=== PATIENT | female | born 1995 | race Caucasian/White ===

== ENCOUNTER 2018-11-30 15:56 | Inpatient (IN) ==
--- NOTE | 2018-11-30 17:03 | Emergency Department Note ---
Disposition Clinical Impression: Suicidal ideation Depression Qualifiers: Depression Type: unspecified Qualified Code(s): F32.9 - Major depressive disorder, single episode, unspecified Disposition: Admitted As Inpatient Condition: Good Referrals: NONE,PCP [Primary Care Provider] - Forms: ED Satisfaction Letter Time of Disposition: 20:25 Psych HPI - General Chief Complaint: ED Psychiatric Symptoms Stated Complaint: anxiety/depression Time Seen by Provider: 11/30/18 16:42 Source: patient, family Mode of arrival: ambulatory Limitations: no limitations Nursing Notes Reviewed: Yes Vital Signs Reviewed: Yes - History of Present Illness HPI Narrative: 23 year old female with history of cutting and depression and currrenlty on well-butrin being managed by Dr. Mcguire presnancy to the ED with a family member. She states that her depression symptoms have otherwise worsened and that in the past two days she has had increased through of hutring herself even thouguh she does not think she would act upon it. Trinity states tht her uncle and two more of her family memebers are otherwise not doing well. She state that about 3 weeks ago she started cutting again on her LLE. Patient is tearful at bedsie and has inappropite laughter at times because of anxiety. - Related Data Allergies Allergy/AdvReac Type Severity Reaction Status Date / Time azithromycin AdvReac Rash Verified 11/30/18 15:57 Constitutional: Denies: fever, chills, weakness, weight change Eyes: Denies: eye pain, eye discharge, vision change ENT ED: Denies: ear pain, throat pain, dental pain, hearing loss, epistaxis, congestion, dysphagia Cardiovascular: Denies: chest pain, palpitations, dyspnea on exertion, edema, syncope Respiratory: Denies: cough, dyspnea, wheezes, hemoptysis, stridor Gastrointestinal: Denies: abdominal pain, nausea, vomiting, diarrhea, constipation, hematemesis, melena, hematochezia Genitourinary: Denies: dysuria, frequency, hematuria, discharge Musculoskeletal: Denies: back pain, neck pain, arthralgia, myalgia Integumentary: Denies: rash, abrasion, lesions Neurological: Denies: headache, weakness, numbness, paresthesias, confusion, abnormal gait, vertigo Psychiatric: Reports: anxiety, depression, suicidal thoughts. Denies: homicidal thoughts, auditory hallucinations, visual hallucinations Endocrine: Denies: fatigue Hematological/Lymphatic: Denies: easy bleeding, easy bruising Allergic/Immunologic: Denies: facial swelling, urticaria Past Medical History - Past Medical History Medical history: Reports: no medical history Psychiatric history: Reports: depression - Social History Smoking Status: Never smoker Smokeless Tobacco Status: No Alcohol use: Reports: none Drug use: Reports: none Physical Exam - General Limitations: no limitations General appearance: alert, in no apparent distress - Head Head exam: atraumatic, normocephalic, normal inspection - Eye Eye exam: Present: normal appearance, PERRL, EOMI - Expanded Eye Exam Pupils: Bilateral: reactive - ENT ENT exam: normal exam, normal oropharynx, mucous membranes moist - Expanded ENT Exam External ear exam: Present: normal external inspection Mouth exam: Present: normal external inspection Teeth exam: Present: normal inspection Throat exam: Present: normal inspection - Neck Neck exam: Present: normal inspection, full ROM, trachea midline - Chest Chest inspection: Present: normal inspection, symmetric chest wall rise - Respiratory Respiratory exam: Present: normal lung sounds bilaterally - Cardiovascular Cardiovascular exam: Present: regular rate, normal rhythm, normal heart sounds - Abdominal Exam Abdominal exam: Present: soft, Non-Tender. Absent: tenderness, distention, guarding, rebound, rigidity - Extremities Exam Extremities exam: Present: normal inspection, full ROM. Absent: tenderness, pedal edema - Expanded Upper Extremity Exam Shoulder exam: Present: normal inspection, full ROM Arm exam: Present: normal inspection, full ROM Elbow exam: Present: normal inspection, full ROM Forearm/Wrist exam: Present: normal inspection, full ROM Hand exam: Present: normal inspection, full ROM Vascular exam: Normal: capillary refill, radial pulse - Expanded Lower Extremity Exam Hip/Pelvis exam: Present: normal inspection, full ROM Upper leg exam: Present: normal inspection, full ROM Knee exam: Present: normal inspection, full ROM Lower leg exam: Present: normal inspection, full ROM, laceration (healing lacerations on her LLE along the medial side of her left leg) Ankle exam: Present: normal inspection, full ROM Foot/toe exam: Present: normal inspection, full ROM Neurovascular/Tendon exam: Absent: motor deficit, sensory deficit, tendon deficit - Back Exam Back exam: Present: normal inspection, full ROM. Absent: tenderness - Neurological Exam Neurological exam: Present: alert, oriented X3 - Expanded Neurological Exam Patient oriented to: Present: person, place, time Coma Scale Eye Opening: Spontaneous Coma Scale Motor Response: Obeys Commands Coma Scale Verbal Response: Oriented Coma Scale Total: 15 - Psychiatric Psychiatric exam: Present: normal affect, normal mood - Skin Skin exam: Present: warm, dry, intact, normal color Course Course Narrative: I will do a medical clearnce on trinity and then consult 1A - Reevaluation(s) Reevaluation #1: patient is medically cleared. 1A consulted Time: 18:23 - Consultations Consultation #1: 1A has decided to admit trinity and she is coming voluntarily. AD[facility] to [facility] Time: 20:25 Vital Signs Temperature 98.0 F 11/30/18 15:59 Pulse Rate 73 11/30/18 15:59 Respiratory Rate 16 11/30/18 15:59 Blood Pressure 136/89 11/30/18 15:59 O2 Sat by Pulse Oximetry 99 11/30/18 15:59 Temperature 98.0 F 11/30/18 15:59 Pulse Rate 61 11/30/18 17:05 Respiratory Rate 18 11/30/18 17:05 Blood Pressure 118/79 11/30/18 17:05 O2 Sat by Pulse Oximetry 100 11/30/18 17:05 Oxygen Delivery Oxygen Delivery Room Air Psych - Lab Data Result diagrams: 11/30/18 17:06 11/30/18 17:06 Lab Results 11/30/18 11/30/18 11/30/18 Range/Units 16:33 16:33 16:33 WBC (4.3-11.1) K/mcL RBC (3.82-4.97) M/mcL Hgb (11.5-15.4) g/dL Hct (35.3-44.9) % MCV (83.0-100.0) fL MCH (28.0-33.3) pg MCHC (31.6-35.5) g/dL RDW (11.5-14.5) % Plt Count (140-400) K/mcL MPV (9.4-12.4) fL Immature Gran % (0-4) % Seg Neutrophils % % Lymphocytes % % Monocytes % % Eosinophils % % Basophils % % Neutrophils # (1.6-8.9) K/mcL Lymphocytes # (0.6-4.6) K/mcL Monocytes # (0.0-1.3) K/mcL Eosinophils # (0.0-0.6) K/mcL Basophils # (0.0-0.2) K/mcL Sodium (136-145) mEq/L Potassium (3.5-5.1) mEq/L Chloride (98-107) mEq/L Carbon Dioxide (23-29) mEq/L BUN (6-20) mg/dL Creatinine (0.60-1.20) mg/dL Est GFR ( Amer) (> 60) Est GFR (Non-Af Amer) (> 60) BUN/Creatinine Ratio (6-26) Glucose (70-105) mg/dL Calculated Osmolality (280-300) Calcium (8.6-10.3) mg/dL Urine Color Yellow (Yellow) Urine Clarity Clear (Clear) Urine pH 6.0 (5.0-8.0) pH Units Ur Specific [place] > 1.030 H (1.010-1.025) Urine Protein Trace (Neg-Trace) mg/dL Urine Glucose (UA) Normal (Normal) mg/dL Urine Ketones 80 H (Negative) mg/dL Urine Blood Negative (Negative) Urine Nitrite Negative (Negative) Urine Bilirubin Negative (Negative) Urine Urobilinogen Normal (Normal) mg/dL Ur Leukocyte Esterase Negative (Negative) Urine Test Negative (Negative) Salicylates (15.0-30.0) mg/dL Urine Opiates Screen Negative (Sixsxo=798) ng/mL Ur Buprenorphine Scrn Negative (Cutoff=5) ng/mL Acetaminophen (10-20) mcg/mL Ur Barbiturates Screen Negative (Qiswwh=208) ng/mL Ur Phencyclidine Scrn Negative (Cutoff=25) ng/mL Ur Amphetamines Screen Negative (Bwyxfu=1144) ng/mL U Benzodiazepines Scrn Negative (Splgdl=026) ng/mL Urine Cocaine Screen Negative (Cutoff= 300) ng/mL U Marijuana (THC) Screen Negative (Cutoff = 50) ng/mL Ur Drug Screen Interp See Below Ethyl Alcohol (Less than 10) mg/dL 11/30/18 11/30/18 Range/Units 17:06 17:06 WBC 7.5 (4.3-11.1) K/mcL RBC 4.09 (3.82-4.97) M/mcL Hgb 12.8 (11.5-15.4) g/dL Hct 38.9 (35.3-44.9) % MCV 95.1 (83.0-100.0) fL MCH 31.3 (28.0-33.3) pg MCHC 32.9 (31.6-35.5) g/dL RDW 13.1 (11.5-14.5) % Plt Count 260 (140-400) K/mcL MPV 11.2 (9.4-12.4) fL Immature Gran % 0.3 (0-4) % Seg Neutrophils % 74.5 % Lymphocytes % 15.9 % Monocytes % 8.0 % Eosinophils % 0.8 % Basophils % 0.5 % Neutrophils # 5.6 (1.6-8.9) K/mcL Lymphocytes # 1.2 (0.6-4.6) K/mcL Monocytes # 0.6 (0.0-1.3) K/mcL Eosinophils # 0.1 (0.0-0.6) K/mcL Basophils # 0.0 (0.0-0.2) K/mcL Sodium 137 (136-145) mEq/L Potassium 3.6 (3.5-5.1) mEq/L Chloride 104 (98-107) mEq/L Carbon Dioxide 23 (23-29) mEq/L BUN 13 (6-20) mg/dL Creatinine 0.73 (0.60-1.20) mg/dL Est GFR ( Amer) > 60 (> 60) Est GFR (Non-Af Amer) > 60 (> 60) BUN/Creatinine Ratio 18 (6-26) Glucose 85 (70-105) mg/dL Calculated Osmolality 283 (280-300) Calcium 9.6 (8.6-10.3) mg/dL Urine Color (Yellow) Urine Clarity (Clear) Urine pH (5.0-8.0) pH Units Ur Specific [place] (1.010-1.025) Urine Protein (Neg-Trace) mg/dL Urine Glucose (UA) (Normal) mg/dL Urine Ketones (Negative) mg/dL Urine Blood (Negative) Urine Nitrite (Negative) Urine Bilirubin (Negative) Urine Urobilinogen (Normal) mg/dL Ur Leukocyte Esterase (Negative) Urine Test (Negative) Salicylates < 2.5 L (15.0-30.0) mg/dL Urine Opiates Screen (Ooqfau=336) ng/mL Ur Buprenorphine Scrn (Cutoff=5) ng/mL Acetaminophen < 10 L (10-20) mcg/mL Ur Barbiturates Screen (Nkkqgl=269) ng/mL Ur Phencyclidine Scrn (Cutoff=25) ng/mL Ur Amphetamines Screen (Hkdoyp=3636) ng/mL U Benzodiazepines Scrn (Cwiret=954) ng/mL Urine Cocaine Screen (Cutoff= 300) ng/mL U Marijuana (THC) Screen (Cutoff = 50) ng/mL Ur Drug Screen Interp Ethyl Alcohol < 10 (Less than 10) mg/dL Psychiatric Medical Clearance - Medical Clearance Checklist Medical History: No Social History Section defined Current Vitals: Last Vital Signs Temp 98.0 F 11/30/18 15:59 Pulse 61 11/30/18 17:05 Resp 18 11/30/18 17:05 BP 118/79 11/30/18 17:05 Pulse Ox 100 11/30/18 17:05 Psychiatric Lab Panel: Drug Levels and Toxicity 11/30/18 11/30/18 16:33 17:06 Urine Opiates Screen Negative Acetaminophen < 10 L Ur Barbiturates Screen Negative Ur Phencyclidine Scrn Negative Ur Amphetamines Screen Negative U Benzodiazepines Scrn Negative Urine Cocaine Screen Negative U Marijuana (THC) Screen Negative Ethyl Alcohol < 10 Abnormal Labs: Abnormal lab results Ur Specific [place] > 1.030 (1.010-1.025) H 11/30/18 16:33 Urine Ketones 80 mg/dL (Negative) H 11/30/18 16:33 Salicylates < 2.5 mg/dL (15.0-30.0) L 11/30/18 17:06 Acetaminophen < 10 mcg/mL (10-20) L 11/30/18 17:06 Statement of Medical Clearance: I have evaluated the patient, reviewed diagnostic information, and certify that the patient's medical condition is sufficiently stable that transfer to the psychiatric unit does not pose a significant risk of deterioration.
[2018-11-30 17:52] LABS: Basophils % 0.5 %; Eosinophils # 0.1 K/mcL (0.0-0.6); Eosinophils % 0.8 %; Hematocrit 38.9 % (35.3-44.9); Hemoglobin 12.8 g/dL (11.5-15.4); Immature Granulocytes % 0.3 % (0-4); Lymphocytes # 1.2 K/mcL (0.6-4.6); Lymphocytes % 15.9 %; Mean Corpuscular HGB Conc 32.9 g/dL (31.6-35.5); Mean Corpuscular Hemoglobin 31.3 pg (28.0-33.3); Mean Corpuscular Volume 95.1 fL (83.0-100.0); Mean Platelet Volume 11.2 fL (9.4-12.4); Monocytes # 0.6 K/mcL (0.0-1.3); Neutrophils # 5.6 K/mcL (1.6-8.9); Platelet Count 260 K/mcL (140-400); Red Blood Count 4.09 M/mcL (3.82-4.97); Red Cell Distribution Width 13.1 % (11.5-14.5); Segmented Neutrophils % 74.5 %; White Blood Count 7.5 K/mcL (4.3-11.1)
[2018-11-30 17:59] LABS: Bilirubin,Urine Negative (Negative); Blood,Urine Negative (Negative); Clarity,Urine Clear (Clear); Color,Urine Yellow (Yellow); Glucose,Urine (UA) Normal (Normal); Ketones,Urine 80 mg/dL (Negative); Leukocyte Esterase,Urine Negative (Negative); Nitrite,Urine Negative (Negative); Protein,Urine Trace mg/dL (Neg-Trace); Specific Gravity,Urine > 1.030 (1.010-1.025); Urobilinogen,Urine Normal (Normal)
[2018-11-30 18:10] LABS: Amphetamine Screen,Urine Negative ng/mL (Cutoff=1000); Barbiturate Screen,Urine Negative ng/mL (Cutoff=200); Benzodiazepines Screen,Urine Negative ng/mL (Cutoff=200); Cannabinoid Screen,Urine Negative ng/mL (Cutoff = 50); Cocaine Screen,Urine Negative ng/mL (Cutoff= 300); Opiate Screen,Urine Negative ng/mL (Cutoff=300); Phencyclidine Screen,Urine Negative ng/mL (Cutoff=25)
[2018-11-30 18:11] LABS: Acetaminophen < 10 mcg/mL (10-20); BUN/Creatinine Ratio 18 (6-26); Blood Urea Nitrogen 13 mg/dL (6-20); Calcium 9.6 mg/dL (8.6-10.3); Carbon Dioxide 23 mEq/L (23-29); Chloride 104 mEq/L (98-107); Ethanol < 10 mg/dL (Less than 10); Glucose 85 mg/dL (70-105); Osmolality,Calculated 283 (280-300); Potassium 3.6 mEq/L (3.5-5.1); Salicylate < 2.5 mg/dL (15.0-30.0); Sodium 137 mEq/L (136-145); eGFR For African Americans > 60 (> 60); eGFR For Non-African Americans > 60 (> 60)
[2018-11-30] MEDS ORDERED: Acetaminophen 325 MG TABLET PO PRN (22:14)
[2018-11-30] MEDS ORDERED: Mag Hydrox/Al Hydrox/Simeth 30 ML UDC PO PRN (22:14)
[2018-11-30] MEDS ORDERED: MOM Conc 10 ML UD.LIQ PO PRN (22:14)
[2018-11-30] MEDS ORDERED: hydrOXYzine pamoate 25 MG CAPSULE PO PRN (22:14)
[2018-11-30] MEDS ORDERED: *HR* LORazepam 2 MG/ML VIAL IM PRN (22:14)
[2018-11-30] MEDS ORDERED: *HR* LORazepam 1 MG TABLET PO PRN (22:14)
[2018-11-30] MEDS ORDERED: Haloperidol Lactate 5 MG/ML VIAL IM PRN (22:14)
[2018-11-30] MEDS: traZODone 50 MG TABLET PO PRN (22:51)
--- NOTE | 2018-12-01 11:48 | Psychiatry History & Physical ---
Date of Encounter: 12/02/18 Time of Encounter: 10:50 History of Present Illness Patient Stated Chief Complaint: depression Medicare Admission Attestation: For traditional Medicare patients the provided hospital inpatient services are reasonable and necessary and in the case of services not specified as inpatient-only under 42 CFR 419.22 (n), that they are appropriately provided as inpatient services in accordance 42 CFR 412.3. For Critical Access Hospital the patient may reasonably be expected to be discharged or transferred to a hospital within 96 hours after admission to the Critical Access Hospital. History of Present Illness: Ms. Acosta is a 23 year old female with history of depression on Wellbutrin presented to the ED because of worsening depression symptoms. She endorses that the she also has been getting panic attacks every now and then. Her last panic attack was 2 days ago when she learnt that her uncle at 80 years of age. She also learned that her another uncle has stage IV cancer. Patient has a history of depression and was diagnosed 3 years ago. Her last majot depression symptom was 3 weeks ago when she tried to cut herself using a kitchen knife. Her symptoms were triggered at home. Patient lives with her parents and she endorses that she felt hopeless and suffocated living in the same house as her parents. Patient is very close to her mother but she is distant to her father. She has a family history of anxiety and her mom and aunt. Patient is occasional drinker but does not smoke cigarettes. No other medical problems she was last seen by a counselor for her suicidal ideation almost 2 years ago. She denies any suicidal or homicidal ideation, auditory or visual hallucination. Past Med Surg Social Fam HX - Past Medical History Medical history: no medical history - Social History Smoking Status: Never smoker Smokeless Tobacco Status: No Alcohol use: none Drug use: none Medications & Allergies BuPROPion SR (12 HR) [Wellbutrin SR] 150 mg PO BID 12/01/18 [History] Allergy/AdvReac Type Severity Reaction Status Date / Time azithromycin AdvReac Rash Verified 12/01/18 09:08 Review of Systems Constitutional: Denies: fever, chills, weakness, weight change Eyes: Denies: eye pain, vision change Ears, Nose, Throat: Denies: ear pain, throat pain, dental pain, hearing loss, congestion Cardiovascular: Denies: chest pain, palpitations, dyspnea on exertion Respiratory: Denies: cough, dyspnea, wheezes Gastrointestinal: Denies: abdominal pain, nausea, vomiting, diarrhea, constipation Genitourinary female: Denies: urgency, dysuria, frequency, abnormal menses, dyspareunia Musculoskeletal: Denies: joint swelling, joint pain Integumentary: Denies: rash, lesions, pruritus Neurological: Denies: headache, weakness, numbness, memory loss Endocrine: Denies: fatigue, heat or cold intolerance Hematologic/Lymphatic: Denies: easy bruising, lymphadenopathy Allergic/Immunologic: Denies: urticaria, itchy eyes Exam - HEENT Head exam IM: Present: atraumatic Eye exam IM: Present: EOMI, normal appearance, PERRL ENT exam IM: Present: normal exam - Neurological Neurological exam: Present: no focal deficits - Respiratory Respiratory exam IM: Present: CTAB - GI/Abdominal GI/Abdominal exam IM: Present: normal bowel sounds, soft. Absent: tenderness - Extremities Extremities exam IM: Present: full ROM - Skin Skin exam IM: Present: dry, warm - Constitutional Vitals: Temp Pulse Resp BP Pulse Ox 98.8 F 67 16 122/75 96 12/01/18 09:00 12/01/18 09:00 12/01/18 09:00 12/01/18 09:00 12/01/18 09:00 General appearance: age & developmentally appropriate, well-groomed, well- nourished - Musculoskeletal Gait: normal Station: relaxed Strength & Tone: normal for patient - Psychiatric Patient Orientation: Yes Person, Yes Time, Yes Place Level of alertness: Alert Behavior: calm, cooperative Psychomotor activity: Normal Eye Contact: Maintains Eye Contact Mood Description: Euthymic/stable Affect description: congruent with mood, full range Speech Volume: Normal Speech pattern: normal rate, normal rhythm, normal tone, fluent, spontaneous Language & Vocabulary: consistent with education Thought Process: Linear, Goal Oriented Thought Content: No Suicidal ideation, No Homicidal ideation, No Overt delusions Perceptual Disturbances: No Auditory hallucinations, No Visual hallucinations Attention Span Ability: Capable of Focused Attention Memory Description: Grossly Intact Patient Reliability: Reliable Historian Fund of knowledge: Yes abstraction ability, Yes average, Yes aware of current events Intelligence Estimate: Average Judgment: Limited Insight: Partial Results - Drug Levels and Toxicology Drug Levels and Toxicology: Drug Levels and Toxicity 11/30/18 11/30/18 16:33 17:06 Urine Opiates Screen Negative Acetaminophen < 10 L Ur Barbiturates Screen Negative Ur Phencyclidine Scrn Negative Ur Amphetamines Screen Negative U Benzodiazepines Scrn Negative Urine Cocaine Screen Negative U Marijuana (THC) Screen Negative Ethyl Alcohol < 10 - Labs Labs: Laboratory Last Values WBC 7.5 K/mcL (4.3-11.1) 11/30/18 17:06 RBC 4.09 M/mcL (3.82-4.97) 11/30/18 17:06 Hgb 12.8 g/dL (11.5-15.4) 11/30/18 17:06 Hct 38.9 % (35.3-44.9) 11/30/18 17:06 MCV 95.1 fL (83.0-100.0) 11/30/18 17:06 MCH 31.3 pg (28.0-33.3) 11/30/18 17:06 MCHC 32.9 g/dL (31.6-35.5) 11/30/18 17:06 RDW 13.1 % (11.5-14.5) 11/30/18 17:06 Plt Count 260 K/mcL (140-400) 11/30/18 17:06 MPV 11.2 fL (9.4-12.4) 11/30/18 17:06 Immature Gran % 0.3 % (0-4) 11/30/18 17:06 Seg Neutrophils % 74.5 % 11/30/18 17:06 Lymphocytes % 15.9 % 11/30/18 17:06 Monocytes % 8.0 % 11/30/18 17:06 Eosinophils % 0.8 % 11/30/18 17:06 Basophils % 0.5 % 11/30/18 17:06 Neutrophils # 5.6 K/mcL (1.6-8.9) 11/30/18 17:06 Lymphocytes # 1.2 K/mcL (0.6-4.6) 11/30/18 17:06 Monocytes # 0.6 K/mcL (0.0-1.3) 11/30/18 17:06 Eosinophils # 0.1 K/mcL (0.0-0.6) 11/30/18 17:06 Basophils # 0.0 K/mcL (0.0-0.2) 11/30/18 17:06 Sodium 137 mEq/L (136-145) 11/30/18 17:06 Potassium 3.6 mEq/L (3.5-5.1) 11/30/18 17:06 Chloride 104 mEq/L (98-107) 11/30/18 17:06 Carbon Dioxide 23 mEq/L (23-29) 11/30/18 17:06 BUN 13 mg/dL (6-20) 11/30/18 17:06 Creatinine 0.73 mg/dL (0.60-1.20) 11/30/18 17:06 Est GFR ( Amer) > 60 (> 60) 11/30/18 17:06 Est GFR (Non-Af Amer) > 60 (> 60) 11/30/18 17:06 BUN/Creatinine Ratio 18 (6-26) 11/30/18 17:06 Glucose 85 mg/dL (70-105) 11/30/18 17:06 Calculated Osmolality 283 (280-300) 11/30/18 17:06 Calcium 9.6 mg/dL (8.6-10.3) 11/30/18 17:06 Urine Color Yellow (Yellow) 11/30/18 16:33 Urine Clarity Clear (Clear) 11/30/18 16:33 Urine pH 6.0 pH Units (5.0-8.0) 11/30/18 16:33 Ur Specific [place] > 1.030 (1.010-1.025) H 11/30/18 16:33 Urine Protein Trace mg/dL (Neg-Trace) 11/30/18 16:33 Urine Glucose (UA) Normal mg/dL (Normal) 11/30/18 16:33 Urine Ketones 80 mg/dL (Negative) H 11/30/18 16:33 Urine Blood Negative (Negative) 11/30/18 16:33 Urine Nitrite Negative (Negative) 11/30/18 16:33 Urine Bilirubin Negative (Negative) 11/30/18 16:33 Urine Urobilinogen Normal mg/dL (Normal) 11/30/18 16:33 Ur Leukocyte Esterase Negative (Negative) 11/30/18 16:33 Urine Test Negative (Negative) 11/30/18 16:33 Salicylates < 2.5 mg/dL (15.0-30.0) L 11/30/18 17:06 Urine Opiates Screen Negative ng/mL (Nlydzj=877) 11/30/18 16:33 Ur Buprenorphine Scrn Negative ng/mL (Cutoff=5) 11/30/18 16:33 Acetaminophen < 10 mcg/mL (10-20) L 11/30/18 17:06 Ur Barbiturates Screen Negative ng/mL (Axgdgd=902) 11/30/18 16:33 Ur Phencyclidine Scrn Negative ng/mL (Cutoff=25) 11/30/18 16:33 Ur Amphetamines Screen Negative ng/mL (Qikgwp=5346) 11/30/18 16:33 U Benzodiazepines Scrn Negative ng/mL (Janohz=635) 11/30/18 16:33 Urine Cocaine Screen Negative ng/mL (Cutoff= 300) 11/30/18 16:33 U Marijuana (THC) Screen Negative ng/mL (Cutoff = 50) 11/30/18 16:33 Ur Drug Screen Interp See Below 11/30/18 16:33 Ethyl Alcohol < 10 mg/dL (Less than 10) 11/30/18 17:06 Assessment and Plan (1) Major depressive disorder Current visit: Yes Status: Acute Additional Plan: Patient presented to the ER because of panic attacks and thoughts of harming herself. On physical exam she denies homicidal or suicidal ideation, auditory/ visual hallucinations We will start patient on Paxil 20 mg PO HS along with her home meds Buproprion XL (24 hr) 300 mg PO daily Qualifiers: Qualified Code(s): F32.9 - Major depressive disorder, single episode, unspecified - Attending Attestation I examined this patient and my medical decision-making was reviewed with the Resident Physician. I agree with the documented findings, disposition and treatment plan as described except to the extent set forth below. Client currently denying SI, intent, or plan. Feels suicidal when anxiety not well controlled. Has been having panic attacks triggered by family issues. Takes Wellbutrin with some success for mood. Wellbutrin, while a great antidepressant, does not always help with anxiety and, at times, can increase one's anxiety level. Discussed adding an SSRI for better anxiety control and client agreeable. Do not anticipate a long inpatient admission.
[2018-12-01] MEDS: BuPROPion XL (24 HR) 150 MG TABLET PO SCH (13:01)
[2018-12-01] MEDS: traZODone 50 MG TABLET PO PRN (21:12)
[2018-12-02] MEDS: BuPROPion XL (24 HR) 150 MG TABLET PO SCH (08:54)
[2018-12-02 09:12] VITALS: BP 100/63
--- NOTE | 2018-12-02 12:00 | Discharge Summary ---
Date of Encounter: 12/02/18 Time of Encounter: 11:57 Diagnosis - Discharge Diagnosis (1) Major depressive disorder Status: Acute Qualifiers: Qualified Code(s): F32.9 - Major depressive disorder, single episode, unspecified Medications - Discharge Medications Prescriptions: Paroxetine [Paxil] 20 mg PO HS #30 tablet BuPROPion XL (24 HR) [Wellbutrin Xl] 300 mg PO DAILY #60 tab.er.24h BuPROPion XL (24 HR) [Wellbutrin Xl] 300 mg PO DAILY #60 tab.er.24h 12/02/18 [Rx] Paroxetine [Paxil] 20 mg PO HS #30 tablet 12/02/18 [Rx] Allergy/AdvReac Type Severity Reaction Status Date / Time azithromycin AdvReac Rash Verified 12/01/18 09:08 Results Procedures and tests throughout hospitalization: Completed Lab Orders Category Date Time Status Acetaminophen Stat Lab 11/30/18 17:06 Completed Basic Metabolic Panel Stat Lab 11/30/18 17:06 Completed Complete Blood Count [HEME] Stat Lab 11/30/18 17:06 Completed Drug Screen, Urine [UCHEM] Stat Lab 11/30/18 16:33 Completed Ethanol Stat Lab 11/30/18 17:06 Completed Test Result, Urine [URIN] Stat Lab 11/30/18 16:33 Completed Salicylate Stat Lab 11/30/18 17:06 Completed Urinalysis reflex Microscopic [URIN] Stat Lab 11/30/18 16:33 Completed Provider Date of admission: 11/30/18 20:38 Primary care physician: PCP NONE Discharging clinician: Sherrell Butterfield Psychiatry Exam - Constitutional Vitals: Temp Pulse Resp BP Pulse Ox 98.1 F 70 16 100/63 98 12/02/18 09:00 12/02/18 09:00 12/02/18 09:00 12/02/18 09:00 12/02/18 09:00 General appearance: age & developmentally appropriate, well-groomed, well- nourished - Musculoskeletal Gait: normal Station: relaxed Strength & Tone: normal for patient - Psychiatric Patient Orientation: Yes Person, Yes Time, Yes Place Level of alertness: Alert Behavior: calm, cooperative Psychomotor activity: Normal Eye Contact: Maintains Eye Contact Mood Description: Euthymic/stable Affect description: congruent with mood, full range Speech Volume: Normal Speech pattern: normal rate, normal rhythm, normal tone, fluent, spontaneous Language & Vocabulary: consistent with education Thought Process: Linear, Goal Oriented Thought Content: No Suicidal ideation, No Homicidal ideation, No Overt delusions Perceptual Disturbances: No Auditory hallucinations, No Visual hallucinations Attention Span Ability: Capable of Focused Attention Memory Description: Grossly Intact Patient Reliability: Reliable Historian Fund of knowledge: Yes abstraction ability, Yes aware of current events Intelligence Estimate: Average Judgment: Fair Insight: Partial Hospital Course Hospital course: Ms. Acosta is a 23 year old female who was admitted secondary to depression, anxiety, and SI. Client had multiple family stressors pile up at once including the of an uncle and finding out another uncle has stage 4 cancer. Client has a history of panic attacks and these intensified in response to her recent stressors. Client was taking Wellbutrin at home and indicated this was helping her mood but not her anxiety. Client was also supposed to be taking Wellbutrin twice a day but frequently forgot to take her second dose and was not getting the full benefit. In the hospital her Wellbutrin was changed to XL for once a day dosing and Paxil was added to help with anxiety with good clinical results. Today client states she feels much calmer. She has been sleeping and eating well. She has been out of her room interacting with her peers. She has attended and participated in groups. Today she is denying SI, intent, or plan. Denies HI/AH/VH. Has good coping skills and reports exercise/running helps with breakthrough anxiety. Feels able to handle things at home and feels ready for discharge. Bright, reactive, and future oriented. Total time spent with client greater than 30 minutes. Patient was educated of her diagnosis and the risks, benefits, and side effects of this treatment and alternative treatment options and was monitored for responsiveness and side effects. Mood, anxiety, sleep, appetite, and interest improved, as did future orientation. Self-harm thoughts subsided, thinking cleared, psychosis resolved, and mood stabilized. Patient was able to attend both individual and group therapy sessions as well as meeting with the psychiatrist daily and urged to discuss any medication or treatment issues or other concerns. The patient was educated primarily by verbal means about their diagnosis and manifestations in their life. The option for treatment including group and individual therapy programming was offered to the patient in the use of medications with all their potential risks, benefits, and side effects were discussed with the patient at length. The patient was given the opportunity to ask questions and was noted to participate in the treatment in the planning process. The patient felt ready and eager to be discharged from the inpatient psychiatric unit to continue on with treatment as an outpatient. The patient agreed that she is safe for this disposition. The patient was considered to be able to participate in informed consent and decision making with respect to medical, legal, and financial issues of the time of discharge. At the time of discharge the patient adamantly denied any concerns for lethality including suicidal or homicidal thoughts ideations or plans and was future oriented toward ongoing mental health care, medical follow-up and sobriety. - Time Spent with Patient Total time spent providing and/or coordinating discharge services: Greater than 30 minutes Assessment and Plan - Patient/Caregiver Discharge Instructions Activity: resume usual activities as tolerated Diet: regular diet - Follow up Plan Follow up with: NONE,PCP [Primary Care Provider] - Functional capacity at discharge: independent ambulation Overall status at discharge: Stable Disposition: Home, Self-Care Quality - Multiple Antipsychotics Patient discharged on 2 or more antipsychotic medications: No Procedures - Procedures Procedures: Medication Management, Crisis Stabilization, Supportive Therapy, Group Therapy
== END 2018-12-02 15:35 | disposition home or self-care (01) | DRG 881 ==
LOC: EMEROOARM 15:56 → 1ANU 20:38
PROVIDERS: ADMIT Psychiatry & Neurology Psychiatry; ATTEND Psychiatry & Neurology Psychiatry